=== PATIENT | male | born 1985 | race Hispanic/Latino ===

== ENCOUNTER 2019-07-22 20:33 | Inpatient (IN) | payer SELFPAY ==
--- NOTE | 2019-07-22 20:55 | Event Note ---
ED Screening Note Date of service: 07/22/19 Time: 20:52 ED Screening Note: This is a 33 y.o. M. that presents to the ER with pain to right buttocks from packed wound. He went to [facility] yesterday and had an I&D but reports increasing pain. He was discharged with pain medication and antibiotics. He is currently on 1013 at [facility] for ETOH. This initial assessment/diagnostic orders/clinical plan/treatment(s) is/are subject to change based on patients health status, clinical progression and re- assessment by fellow clinical providers in the ED. Further treatment and workup at subsequent clinical providers discretion. Patient/guardian urged not to elope from the ED as their condition may be serious if not clinically assessed and managed. Initial orders include:
--- NOTE | 2019-07-22 21:54 | Emergency Department Report ---
- General Chief complaint: Skin/Abscess/Foreign Body Stated complaint: ABCESS Time Seen by Provider: 07/22/19 20:52 Source: patient Mode of arrival: Ambulatory Limitations: No Limitations - History of Present Illness Initial comments: Patient is a 33-year-old male who presents the emergency room with complaints of an abscess to the right buttock that began 4 days ago. Patient states 2 days ago he went to the [facility] and had an I&D performed with packing placement. Patient states he was given prescription for Bactrim. He states was given 1 hydrocodone tab while in the ED but does not have any other pain medication. He states he has been taking ibuprofen without much relief. he denies any fever, chills, or drainage. Patient denies any past medical history or allergies to medications. Patient states that he is currently at [facility] for anxiety and depression. - Related Data Allergies Allergy/AdvReac Type Severity Reaction Status Date / Time No Known Allergies Allergy Verified 07/23/19 04:29 Abscess Boil HPI - HPI Chief Complaint: Skin/Abscess/Foreign Body Stated Complaint: ABCESS Time Seen by Provider: 07/22/19 20:52 Allergies/Adverse Reactions: Allergies Allergy/AdvReac Type Severity Reaction Status Date / Time No Known Allergies Allergy Verified 07/23/19 04:29 ED Review of Systems ROS: Stated complaint: ABCESS Other details as noted in HPI Comment: All other systems reviewed and negative ED Past Medical Hx - Past Medical History Previous Medical History?: No Hx Psychiatric Treatment: Yes (Depression) Additional medical history: Obesity, Alcoholism - Surgical History Past Surgical History?: No - Social History Smoking Status: Current Every Day Smoker Substance Use Type: Alcohol ED Physical Exam - General Limitations: No Limitations General appearance: alert, in no apparent distress - Head Head exam: Present: atraumatic, normocephalic - Eye Eye exam: Present: normal appearance - ENT ENT exam: Present: mucous membranes moist - Respiratory Respiratory exam: Present: normal lung sounds bilaterally. Absent: respiratory distress, wheezes, rales, rhonchi, stridor, chest wall tenderness, accessory muscle use, decreased breath sounds, prolonged expiratory - Cardiovascular Cardiovascular Exam: Present: regular rate, normal rhythm, normal heart sounds. Absent: systolic murmur, diastolic murmur, rubs, gallop - exam: Present: other (toppiece cutter: ramakrishna, RN, on exam erythema/inuduration present to the gluteal cleft, right buttock, perineum, and posterior scrotum, no testicle involvement, area of fluctuance present on the perineum, packing in place, no drainage/bleeding currently) - Neurological Exam Neurological exam: Present: alert, oriented X3 - Psychiatric Psychiatric exam: Present: normal affect, normal mood - Skin Skin exam: Present: warm, dry ED Course Vital Signs 07/22/19 07/22/19 07/22/19 20:39 22:50 23:20 Temperature 98.5 F Pulse Rate 108 H Respiratory 18 16 16 Rate Blood Pressure 125/90 Blood Pressure [Left] O2 Sat by Pulse 97 Oximetry 07/23/19 07/23/19 07/23/19 00:18 00:49 01:19 Temperature 98.4 F Pulse Rate 90 Respiratory 16 16 16 Rate Blood Pressure Blood Pressure 113/62 [Left] O2 Sat by Pulse 99 Oximetry 07/23/19 07/23/19 07/23/19 03:16 04:30 06:10 Temperature 98.4 F 98.4 F 98.9 F Pulse Rate 84 81 90 Respiratory 16 16 20 Rate Blood Pressure 126/75 Blood Pressure 116/62 118/69 [Left] O2 Sat by Pulse 98 98 98 Oximetry - Consultations Consultation #1: 07/23/19 01:[address] Kan,general surgery who recommended NPO, IV abx, and will take to the OR in the morning, advised for hospitalist to admit Consultation #2: 07/23/19 01:35 Dr. Block, hospitalist will accept and resume care of patient, will admit to the hospital ED Medical Decision Making - Lab Data Result diagrams: 07/22/19 22:26 07/22/19 22:26 Lab Results 07/22/19 07/22/19 07/22/19 Range/Units 22:26 22:26 22:26 WBC 12.7 H (4.5-11.0) K/mm3 RBC 5.03 (3.65-5.03) M/mm3 Hgb 15.2 (11.8-15.2) gm/dl Hct 44.7 (35.5-45.6) % MCV 89 (84-94) fl MCH 30 (28-32) pg MCHC 34 (32-34) % RDW 13.7 (13.2-15.2) % Plt Count 300 (140-440) K/mm3 Lymph % (Auto) 13.4 (13.4-35.0) % [place] % (Auto) 11.9 H (0.0-7.3) % Eos % (Auto) 1.8 (0.0-4.3) % Baso % (Auto) 0.5 (0.0-1.8) % Lymph # 1.7 (1.2-5.4) K/mm3 [place] # 1.5 H (0.0-0.8) K/mm3 Eos # 0.2 (0.0-0.4) K/mm3 Baso # 0.1 (0.0-0.1) K/mm3 Seg Neutrophils % 72.4 H (40.0-70.0) % Seg Neutrophils # 9.2 H (1.8-7.7) K/mm3 Sodium 136 L (137-145) mmol/L Potassium 4.5 (3.6-5.0) mmol/L Chloride 101.5 (98-107) mmol/L Carbon Dioxide 24 (22-30) mmol/L Anion Gap 15 mmol/L BUN 10 (9-20) mg/dL Creatinine 0.9 (0.8-1.5) mg/dL Estimated GFR > 60 ml/min BUN/Creatinine Ratio 11 % Glucose 100 (75-100) mg/dL Lactic Acid 0.80 (0.7-2.0) mmol/L Calcium 8.6 (8.4-10.2) mg/dL Total Bilirubin 0.30 (0.1-1.2) mg/dL AST 21 (5-40) units/L ALT 26 (7-56) units/L Alkaline Phosphatase 87 (35-129) units/L Total Creatine Kinase 180 H (55-170) units/L Total Protein 7.3 (6.3-8.2) g/dL Albumin 3.9 (3.9-5) g/dL Albumin/Globulin Ratio 1.1 % - Radiology Data Radiology results: report reviewed CT ABDOMEN AND PELVIS WITH CONTRAST INDICATION / CLINICAL INFORMATION: abscess, induration of gluteus/perineum/scrotum. TECHNIQUE: Axial CT images were obtained through the abdomen and pelvis after 100 mL Omnipaque [address] scans at this location are performed using CT dose reduction for ALARA by means of automated exposure control. COMPARISON: None available. FINDINGS: LOWER CHEST: Small calcified granulomas in the right middle lobe. No significant abnormality. LIVER: Mild diffuse hypodensity likely representing mild fatty infiltration. GALLBLADDER: No significant abnormality. BILE DUCTS: No significant abnormality. PANCREAS: No significant abnormality. SPLEEN: No significant abnormality. ADRENALS: No significant abnormality. RIGHT KIDNEY and URETER: No significant abnormality. LEFT KIDNEY and URETER: No significant abnormality. STOMACH and SMALL BOWEL: No significant abnormality. COLON: No significant abnormality. APPENDIX: No significant abnormality. PERITONEUM: No free fluid. No free air. No fluid collection. LYMPH NODES: No significant adenopathy. Shotty, mildly reactive bilateral inguinal lymph nodes. AORTA and ARTERIES: No significant abnormality. IVC and VEINS: No significant abnormality. URINARY BLADDER: No significant abnormality. REPRODUCTIVE ORGANS: No significant abnormality. ADDITIONAL FINDINGS: There is a perianal abscess beginning at the inferior margin of the perianal region and extending into the medial right buttock along the gluteal cleft. This abscess contains a few bubbles of gas and a small calcification. Abscess measures 3.2 x 2.0 x 6.0 cm. There is induration of the inferior right buttock extending into the posterior scrotum. There are a few bubbles of soft tissue gas in this indurated soft tissue. SKELETAL SYSTEM: No significant abnormality. IMPRESSION: 1. Perianal abscess extending into the medial right buttock along the gluteal cleft with adjacent soft tissue induration extending to the posterior scrotum. Signer Name: Genevieve Pedraza MD Signed: 07/23/2019 12:50 AM Workstation Name: [id number] Transcribed By: DT Dictated By: Law Pedraza MD Electronically Authenticated By: Law Pedraaz MD Signed Date/Time: 07/23/19 0050 - Medical Decision Making Patient is a 33-year-old male who presents the emergency room with complaints of an abscess to the right buttock that began 4 days ago. Patient states 2 days ago he went to the [facility] and had an I&D performed with packing placement. Patient states he was given prescription for Bactrim. He states was given 1 hydrocodone tab while in the ED but does not have any other pain medication. He states he has been taking ibuprofen without much relief. he denies any fever, chills, or drainage. Patient denies any past medical history or allergies to medications. Patient states that he is currently at [facility] for anxiety and depression. initial vitals with elevated HR which improved upon repeat. on exam: toppiece cutter: PATRICIA durbin, on exam erythema/inuduration present to the gluteal cleft, right buttock, perineum, and posterior scrotum, no testicle involvement, area of fluctuance present on the perineum, packing in place, no drainage/bleeding currently. packing removed and irrigated with saline and betadine. Dr. Hernandez, ER attending evaluated pt and recommended IV abx, labs, and CT abd/pelvis with IV contrast. mildly elevated WBC. CT abd pelvis with IV contrast: 1. Perianal abscess extending into the medial right buttock along the gluteal cleft with adjacent soft tissue induration extending to the posterior scrotum. spoke with Dr. Kan,general surgery who recommended NPO, IV abx, and will take to the OR in the morning, advised for hospitalist to admit. spoke with Dr. Block, hospitalist will accept and resume care of patient, will admit to the hospital. pt admitted to the hospital. - Differential Diagnosis abcess, cellulitis, Tiki's gangrene Critical care attestation.: If time is entered above; I have spent that time in minutes in the direct care of this critically ill patient, excluding procedure time. ED Disposition Clinical Impression: Perianal abscess Leukocytosis Qualifiers: Leukocytosis type: unspecified Qualified Code(s): D72.829 - Elevated white blood cell count, unspecified Disposition: OP ADMIT IP TO THIS HOSP Is pt being admited?: Yes Does the pt Need Aspirin: No Condition: Fair
[2019-07-22] MEDS ORDERED: ACETAMINOPHEN W/CODEINE 300-30 MG TAB PO ONE (22:11)
[2019-07-22] MEDS ORDERED: CLINDAMYCIN 600 MG/50 mL 600 MG/50 ML BAG IV ONE (22:22)
[2019-07-22] MEDS ORDERED: MORPHINE 4 MG/1 ML INJ IV ONE (22:22)
[2019-07-22] MEDS ORDERED: SODIUM CHLORIDE 0.9% 1000 ML 1,000 ML IV ONE (22:23)
[2019-07-22] MEDS ORDERED: ONDANSETRON 4 MG/2 ML INJ IV ONE (22:23)
--- NOTE | 2019-07-22 22:49 | Event Note ---
Date of service: 07/22/19 Face to Face: attending face to face 33-year-old gentleman, not known to this provider previously, reports outpatient incision and drainage to gluteal abscess a few days ago, now presenting with worsening gluteal pain, and perennial pain. He is afebrile but tachycardic, there is no perennial crepitus, and there is no testicular involvement. Suspect gluteal and perennial cellulitis. Do not suspect Tiki's gangrene at this time. We will treat with pain medicine, IV fluids, obtain screening laboratory studies, CT scan of the abdomen and pelvis, and reassess. This is discussed with the physician web press operator assistant. Vital Signs 07/22/19 20:39 Temperature 98.5 F Pulse Rate 108 H Respiratory 18 Rate Blood Pressure 125/90 O2 Sat by Pulse 97 Oximetry
[2019-07-22 22:54] LABS: Basophils # (Auto) 0.1 K/mm3 (0.0-0.1); Basophils % (Auto) 0.5 % (0.0-1.8); Eosinophils # (Auto) 0.2 K/mm3 (0.0-0.4); Eosinophils % (Auto) 1.8 % (0.0-4.3); Hematocrit 44.7 % (35.5-45.6); Hemoglobin 15.2 gm/dl (11.8-15.2); Lymphocytes # (Auto) 1.7 K/mm3 (1.2-5.4); Lymphocytes % (Auto) 13.4 % (13.4-35.0); Mean Corpuscular HGB Conc 34 % (32-34); Mean Corpuscular Volume 89 fl (84-94); Monocytes # (Auto) 1.5 K/mm3 (0.0-0.8); Monocytes % (Auto) 11.9 % (0.0-7.3); Platelet Count 300 K/mm3 (140-440); Red Blood Count 5.03 M/mm3 (3.65-5.03); Red Cell Distribution Width 13.7 % (13.2-15.2)
[2019-07-22 23:08] LABS: Alanine Aminotransferase 26 units/L (7-56); Albumin 3.9 g/dL (3.9-5); BUN/Creatinine Ratio 11; Blood Urea Nitrogen 10 mg/dL (9-20); Calcium 8.6 mg/dL (8.4-10.2); Hemolysis Index 1
[2019-07-23] MEDS ORDERED: HYDROmorphone 1 MG/1 ML INJ IV ONE (00:13)
--- NOTE | 2019-07-23 00:55 | Cat Scan Report ---
CT ABDOMEN AND PELVIS WITH CONTRAST INDICATION / CLINICAL INFORMATION: abscess, induration of gluteus/perineum/scrotum. TECHNIQUE: Axial CT images were obtained through the abdomen and pelvis after 100 mL Omnipaque [address] scans at this location are performed using CT dose reduction for ALARA by means of automated exposure control. COMPARISON: None available. FINDINGS: LOWER CHEST: Small calcified granulomas in the right middle lobe. No significant abnormality. LIVER: Mild diffuse hypodensity likely representing mild fatty infiltration. GALLBLADDER: No significant abnormality. BILE DUCTS: No significant abnormality. PANCREAS: No significant abnormality. SPLEEN: No significant abnormality. ADRENALS: No significant abnormality. RIGHT KIDNEY and URETER: No significant abnormality. LEFT KIDNEY and URETER: No significant abnormality. STOMACH and SMALL BOWEL: No significant abnormality. COLON: No significant abnormality. APPENDIX: No significant abnormality. PERITONEUM: No free fluid. No free air. No fluid collection. LYMPH NODES: No significant adenopathy. Shotty, mildly reactive bilateral inguinal lymph nodes. AORTA and ARTERIES: No significant abnormality. IVC and VEINS: No significant abnormality. URINARY BLADDER: No significant abnormality. REPRODUCTIVE ORGANS: No significant abnormality. ADDITIONAL FINDINGS: There is a perianal abscess beginning at the inferior margin of the perianal reg ion and extending into the medial right buttock along the gluteal cleft. This abscess contains a few bubbles of gas and a small calcification. Abscess measures 3.2 x 2.0 x 6.0 cm. There is induration of the inferior right buttock extending into the posterior scrotum. There are a few bubbles of soft tis debra gas in this indurated soft tissue. SKELETAL SYSTEM: No significant abnormality. IMPRESSION: 1. Perianal abscess extending into the medial right buttock along the gluteal cleft with adjacent sof t tissue induration extending to the posterior scrotum. Signer Name: Genevieve Pedraza MD Signed: 07/23/2019 12:50 AM Workstation Name: [id number]
[2019-07-23] MEDS ORDERED: ACETAMINOPHEN 325 MG TAB PO PRN (02:38)
[2019-07-23] MEDS ORDERED: ONDANSETRON 4 MG/2 ML INJ IV PRN (02:38)
[2019-07-23] MEDS ORDERED: LORazepam 2 MG/ML VIAL IV PRN (02:50)
--- NOTE | 2019-07-23 02:57 | History and Physical Report ---
<PHILIP MARSHALL - Last Filed: 07/23/19 03:23> History of Present Illness Date of examination: 07/23/19 Date of admission: 07/23/2019 Chief complaint: Abscess to the right buttock. History of present illness: 33-year-old male who is on [address] [facility] with history of anxiety, depression, tobacco abuse, and EtOH abuse who presents to [facility] ED with complaints of abscess to the right buttock. Patient states that he felt a small bump around his rectum approximately one week ago. The bump continued to grow, and became painful. He went to [facility] where they performed an I& D, gave him Bactrim, and packed the site. He was also given hydrocodone in the ED but denies received a prescription for any pain medicine. His pain continued and began to worsened, so he decided to come to ED for further evaluation. Pt states that he has had an a rectal abscess about 5-6 years ado. The abscess resolved on its own and did not require any medical.surgical intervention. Past History Past Medical History: other (anxiety, depression, obesity) Past Surgical History: Other (rectal abscess I&D 06/2019) Social history: smoking, alcohol abuse, other (1013 at [facility]) Family history: no significant family history Medications and Allergies Active Meds: Active Medications Acetaminophen (Tylenol) 650 mg PO Q4H PRN PRN Reason: Pain MILD(1-3)/Fever >100.5/SPENCER Hydromorphone HCl (Dilaudid) 0.5 mg IV Q3H PRN PRN Reason: Pain , Severe (7-10) Sodium Chloride (Nacl 0.9% 1000 Ml) 1,000 mls @ 100 mls/hr IV DIRECT GIR[facility] Metronidazole (Flagyl 500 Mg/100 Ml) 500 mg in 100 mls @ 100 mls/hr IV Q8HR GIRISH; Protocol Levofloxacin/Dextrose (Levaquin 500mg/100ml) 500 mg in 100 mls @ 100 mls/hr IV Q48H GIR[facility]; Protocol Lorazepam (Ativan) 2 mg IV Q1H PRN PRN Reason: CIWA-Ar 8-15 Lorazepam (Ativan) 4 mg IV Q1H PRN PRN Reason: CIWA-Ar 16-25 Morphine Sulfate (Morphine) 2 mg IV Q4H PRN PRN Reason: Pain, Moderate (4-6) Nicotine (Habitrol) 14 mg TD QDAY GIRISH Ondansetron HCl (Zofran) 4 mg IV Q6H PRN PRN Reason: Nausea And Vomiting Sodium Chloride (Sodium Chloride Flush Syringe 10 Ml) 10 ml IV BID GIRISH Sodium Chloride (Sodium Chloride Flush Syringe 10 Ml) 10 ml IV PRN PRN PRN Reason: LINE FLUSH Review of Systems All systems: negative Genitourinary Male: other Rectal: pain, other (rectal abscess) Exam - Physical Exam Narrative exam: Physical exam General appearance: Present: No acute distress, alert and oriented 3, well developed, adult male - EENT Eyes: Present: PERRL, EOM intact, ENT: hearing intact, normal dentition - Neck Neck: Present: supple, normal ROM - Respiratory Respiratory effort: Non-labored Respiratory: CTA - Cardiovascular Heart rate: 84 (bpm) Rhythm: SR Heart Sounds: Present: S1, S2 - Extremities Extremities: no ischemia, pulses intact, - Peripheral Assessment Peripheral Pulses: within normal limits - Abdominal General gastrointestinal: obese, non-tender, normal bowel sounds - Integumentary Integumentary: Present: warm, dry, - Musculoskeletal Musculoskeletal: Able to move all extremities, normal gait -Neurological Neurological: CN II-XII grossly intact - Psychiatric Psychiatric: cooperative - Constitutional Vitals: Temp Pulse Resp BP Pulse Ox 98.4 F 90 16 113/62 99 07/23/19 00:18 07/23/19 00:18 07/23/19 00:49 07/23/19 00:18 07/23/19 00:18 Results - Labs CBC & Chem 7: 07/22/19 22:26 07/22/19 22:26 Labs: Laboratory Last Values WBC 12.7 K/mm3 (4.5-11.0) H 07/22/19 22:26 RBC 5.03 M/mm3 (3.65-5.03) 07/22/19 22:26 Hgb 15.2 gm/dl (11.8-15.2) 07/22/19 22:26 Hct 44.7 % (35.5-45.6) 07/22/19 22:26 MCV 89 fl (84-94) 07/22/19 22:26 MCH 30 pg (28-32) 07/22/19 22:26 MCHC 34 % (32-34) 07/22/19 22:26 RDW 13.7 % (13.2-15.2) 07/22/19 22:26 Plt Count 300 K/mm3 (140-440) 07/22/19 22:26 Lymph % (Auto) 13.4 % (13.4-35.0) 07/22/19 22:26 [place] % (Auto) 11.9 % (0.0-7.3) H 07/22/19 22:26 Eos % (Auto) 1.8 % (0.0-4.3) 07/22/19 22:26 Baso % (Auto) 0.5 % (0.0-1.8) 07/22/19 22: Lymph # 1.7 K/mm3 (1.2-5.4) 07/22/19 22:26 [place] # 1.5 K/mm3 (0.0-0.8) H 07/22/19 22:26 Eos # 0.2 K/mm3 (0.0-0.4) 07/22/19 22:26 Baso # 0.1 K/mm3 (0.0-0.1) 07/22/19 22:26 Seg Neutrophils % 72.4 % (40.0-70.0) H 07/22/19 22:26 Seg Neutrophils # 9.2 K/mm3 (1.8-7.7) H 07/22/19 22:26 Sodium 136 mmol/L (137-145) L 07/22/19 22:26 Potassium 4.5 mmol/L (3.6-5.0) 07/22/19 22:26 Chloride 101.5 mmol/L (98-107) 07/22/19 22:26 Carbon Dioxide 24 mmol/L (22-30) 07/22/19 22:26 15 mmol/L 07/22/19 22:26 BUN 10 mg/dL (9-20) 07/22/19 22:26 0.9 mg/dL (0.8-1.5) 07/22/19 22:26 Estimated GFR > 60 ml/min 07/22/19 22:26 11 % 07/22/19 22:26 Glucose 100 mg/dL (75-100) 07/22/19 22:26 Lactic Acid 0.80 mmol/L (0.7-2.0) 07/22/19 22:26 Calcium 8.6 mg/dL (8.4-10.2) 07/22/19 22:26 0.30 mg/dL (0.1-1.2) 07/22/19 22:26 AST 21 units/L (5-40) 07/22/19 22:26 ALT 26 units/L (7-56) 07/22/19 22:26 87 units/L (35-129) 07/22/19 22:26 180 units/L (55-170) H 07/22/19 22:26 7.3 g/dL (6.3-8.2) 07/22/19 22: 3.9 g/dL (3.9-5) 07/22/19 22:26 1.1 % 07/22/19 22:26 - Imaging and Cardiology Imaging and Cardiology: CT Abd/ Pelvis: FINDINGS: LOWER CHEST: Small calcified granulomas in the right middle lobe. No significant abnormality. LIVER: Mild diffuse hypodensity likely representing mild fatty infiltration. GALLBLADDER: No significant abnormality. BILE DUCTS: No significant abnormality. PANCREAS: No significant abnormality. SPLEEN: No significant abnormality. ADRENALS: No significant abnormality. RIGHT KIDNEY and URETER: No significant abnormality. LEFT KIDNEY and URETER: No significant abnormality. STOMACH and SMALL BOWEL: No significant abnormality. COLON: No significant abnormality. APPENDIX: No significant abnormality. PERITONEUM: No free fluid. No free air. No fluid collection. LYMPH NODES: No significant adenopathy. Shotty, mildly reactive bilateral inguinal lymph nodes. AORTA and ARTERIES: No significant abnormality. IVC and VEINS: No significant abnormality. URINARY BLADDER: No significant abnormality. REPRODUCTIVE ORGANS: No significant abnormality. ADDITIONAL FINDINGS: There is a perianal abscess beginning at the inferior margin of the perianal region and extending into the medial right buttock along the gluteal cleft. This abscess contains a few bubbles of gas and a small calcification. Abscess measures 3.2 x 2.0 x 6.0 cm. There is induration of the inferior right buttock extending into the posterior scrotum. There are a few bubbles of soft tissue gas in this indurated soft tissue. Assessment and Plan Assessment and plan: 33-year-old male who is on 1013 at [facility] with history of anxiety, depression, tobacco abuse, and EtOH abuse who presents to [facility] ED with complaints of abscess to the right buttock. Will admit to Med/Surg for further evaluation and treatment. Perianal abscess -I&D of abscess done at [facility] 4 days ago -Today's CT Abd/Pelvis revealed: perianal abscess measuring 3.2 x 2.0 x 6.0 cm extending to right medial buttock along the gluteal cleft with induration of the inferior right buttock extending into the posterior scrotum. This abscess contains a few bubbles of gas and a small calcification. -Start on IV Levaquin and Flagyl -Gen Surgery (Dr. Kan) consulted with plans to take pt to OR in am -NPO -on IVF -Continue supportive care Leukocytosis -WBC 12.7 -Afebrile -Likely secondary to perianal abscess -On IV abx -Continue to monitor CBC Tobacco abuse -Current every day smoker -Counseled for cessation -Nicotine patch when necessary EtOH Abuse -Last drink 4 days ago -Initiate CIWA protocol -Start Thiamine and Folic Acid -On D5 NS -Counseled for cessation abuse DVT PPX -on SCD's Advance Directives: No VTE prophylaxis?: Mechanical Plan of care discussed with patient/family: Yes <TIFF VALIENTE - Last Filed: 07/23/19 22:25> History of Present Illness Date of admission: 07/23/19 02:38 Medications and Allergies Active Meds: Active Medications Acetaminophen (Tylenol) 650 mg PO Q4H PRN PRN Reason: Pain MILD(1-3)/Fever >100.5/SPENCER Hydromorphone HCl (Dilaudid) 0.5 mg IV Q3H PRN PRN Reason: Pain , Severe (7-10) Last Admin: 07/23/19 18:55 Dose: 0.5 mg Documented by: Metronidazole (Flagyl 500 Mg/100 Ml) 500 mg in 100 mls @ 100 mls/hr IV Q8HR GIRISH; Protocol Last Admin: 07/23/19 22:03 Dose: 100 mls/hr Documented by: Folic Acid 1 mg/ Sodium (Chloride) 50.2 mls @ 200.8 mls/hr IV QDAY GIRISH Last Admin: 07/23/19 14:59 Dose: 200.8 mls/hr Documented by: Thiamine HCl 100 mg/ Sodium (Chloride) 51 mls @ 100 mls/hr IV QDAY [facility] Last Admin: 07/23/19 12:32 Dose: 100 mls/hr Documented by: Dextrose/Sodium Chloride (D5ns) 1,000 mls @ 75 mls/hr IV DIRECT [facility] Last Admin: 07/23/19 12:25 Dose: 75 mls/hr Documented by: Levofloxacin/Dextrose (Levaquin 500mg/100ml) 500 mg in 100 mls @ 100 mls/hr IV Q24H [facility]; Protocol Last Admin: 07/23/19 20:46 Dose: Not Given Documented by: Lorazepam (Ativan) 2 mg IV Q1H PRN PRN Reason: CIWA-Ar 8-15 Lorazepam (Ativan) 4 mg IV Q1H PRN PRN Reason: CIWA-Ar 16-25 Morphine Sulfate (Morphine) 2 mg IV Q4H PRN PRN Reason: Pain, Moderate (4-6) Last Admin: 07/23/19 22:03 Dose: 2 mg Documented by: Nicotine (Habitrol) 14 mg TD QDAY [facility] Last Admin: 07/23/19 12:37 Dose: Not Given Documented by: Ondansetron HCl (Zofran) 4 mg IV Q6H PRN PRN Reason: Nausea And Vomiting Sodium Chloride (Sodium Chloride Flush Syringe 10 Ml) 10 ml IV BID [facility] Last Admin: 07/23/19 22:04 Dose: 10 ml Documented by: Sodium Chloride (Sodium Chloride Flush Syringe 10 Ml) 10 ml IV PRN PRN PRN Reason: LINE FLUSH Exam - Constitutional Vitals: Temp Pulse Resp BP Pulse Ox 98.2 F 68 18 116/48 95 07/23/19 22:15 07/23/19 22:15 07/23/19 22:15 07/23/19 22:15 07/23/19 22:15 Results - Labs CBC & Chem 7: 07/22/19 22:26 07/22/19 22:26 Labs: Laboratory Last Values WBC 12.7 K/mm3 (4.5-11.0) H 07/22/19 22:26 RBC 5.03 M/mm3 (3.65-5.03) 07/22/19 22:26 Hgb 15.2 gm/dl (11.8-15.2) 07/22/19 22:26 Hct 44.7 % (35.5-45.6) 07/22/19 22:26 MCV 89 fl (84-94) 07/22/19 22:26 MCH 30 pg (28-32) 07/22/19 22:26 MCHC 34 % (32-34) 07/22/19 22:26 RDW 13.7 % (13.2-15.2) 07/22/19 22:26 Plt Count 300 K/mm3 (140-440) 07/22/19 22:26 Lymph % (Auto) 13.4 % (13.4-35.0) 07/22/19 22:26 [place] % (Auto) 11.9 % (0.0-7.3) H 07/22/19 22:26 Eos % (Auto) 1.8 % (0.0-4.3) 07/22/19 22:26 Baso % (Auto) 0.5 % (0.0-1.8) 07/22/19 22:26 Lymph # 1.7 K/mm3 (1.2-5.4) 07/22/19 22:26 Johnston # 1.5 K/mm3 (0.0-0.8) H 07/22/19 22:26 Eos # 0.2 K/mm3 (0.0-0.4) 07/22/19 22:26 Baso # 0.1 K/mm3 (0.0-0.1) 07/22/19 22:26 Seg Neutrophils % 72.4 % (40.0-70.0) H 07/22/19 22:26 Seg Neutrophils # 9.2 K/mm3 (1.8-7.7) H 07/22/19 22:26 Sodium 136 mmol/L (137-145) L 07/22/19 22:26 Potassium 4.5 mmol/L (3.6-5.0) 07/22/19 22:26 Chloride 101.5 mmol/L (98-107) 07/22/19 22:26 Carbon Dioxide 24 mmol/L (22-30) 07/22/19 22:26 15 mmol/L 07/22/19 22:26 BUN 10 mg/dL (9-20) 07/22/19 22:26 0.9 mg/dL (0.8-1.5) 07/22/19 22:26 Estimated GFR > 60 ml/min 07/22/19 22:26 11 % 07/22/19 22:26 Glucose 100 mg/dL (75-100) 07/22/19 22:26 Lactic Acid 0.80 mmol/L (0.7-2.0) 07/22/19 22:26 Calcium 8.6 mg/dL (8.4-10.2) 07/22/19 22:26 0.30 mg/dL (0.1-1.2) 07/22/19 22:26 AST 21 units/L (5-40) 07/22/19 22:26 ALT 26 units/L (7-56) 07/22/19 22:26 87 units/L (35-129) 07/22/19 22:26 180 units/L (55-170) H 07/22/19 22:26 7.3 g/dL (6.3-8.2) 07/22/19 22:26 3.9 g/dL (3.9-5) 07/22/19 22:26 1.1 % 07/22/19 22:26 Assessment and Plan Assessment and plan: I personally discussed the pt with the COLLAR TACKER-C, I agree with the above assessment and plan
[2019-07-23] MEDS ORDERED: SODIUM CHLORIDE 0.9% 1000 ML 1,000 ML IV SCH (03:00)
[2019-07-23] MEDS: HYDROmorphone 1 MG/1 ML INJ IV PRN ×4 (06:09→18:55)
[2019-07-23] MEDS ORDERED: LIDOCAINE (1%) 10 MG/1 ML VIAL 20 ML MDV ONE (08:43)
[2019-07-23] MEDS ORDERED: BUPIVACAINE/PF (0.5%) 5 MG/1 ML 30 ML VIAL INFILTRATI ONE (08:43)
[2019-07-23] MEDS ORDERED: BUPIVACAINE-EPINEPHRINE/PF 0.5%-1:200,000 (30 ML) VIAL INFILTRATI ONE ×2 (08:44→10:25)
[2019-07-23] MEDS ORDERED: dexAMETHasone 20 MG/5 ML VIAL ONE (09:02)
[2019-07-23] MEDS ORDERED: SUCCINYLCHOLINE CHLORIDE 200 MG/10 ML INJ MDV ONE (09:02)
[2019-07-23] MEDS ORDERED: NEOSTIGMINE 10MG/10 ML INJ MDV ONE (09:02)
[2019-07-23] MEDS ORDERED: GLYCOPYRROLATE 0.4 MG/2 ML INJ ONE (09:02)
[2019-07-23] MEDS ORDERED: LIDOCAINE MPF (2%) 20 MG/1 ML VIAL 5 ML ONE (09:02)
[2019-07-23] MEDS ORDERED: fentaNYL 100 MCG/2 ML INJ ONE ×2 (09:02)
[2019-07-23] MEDS ORDERED: ONDANSETRON 4 MG/2 ML INJ ONE (09:02)
[2019-07-23] MEDS ORDERED: PHENYLEPHRINE/NS 1,000 MCG/10 ML SYRINGE (OR USE) IV ONE (09:02)
[2019-07-23] MEDS ORDERED: ROCURONIUM 50 MG/5 ML INJ IV ONE (09:02)
[2019-07-23] MEDS ORDERED: PROPOFOL 200 MG/20 ML VIAL IV ONE (09:03)
--- NOTE | 2019-07-23 09:03 | Consultation ---
History of Present Illness Consult date: 07/23/19 Reason for consult: other (kralos-anal abscess) - History of present illness History of present illness: 33 year old male presented to ED with right buttock pain. He had an abscess drained in the affected area a few days ago at an OSH. The pain never resolved and after getting worse he came in. imaging shows a [id number] abscess. Over night it started to spontaneously drain. He has had similar symptoms before years ago. Past History Past Medical History: other (anxiety, depression, obesity) Past Surgical History: Other (rectal abscess I&D 06/2019) Social history: smoking, alcohol abuse, other (1013 at [place]) Family history: no significant family history Medications and Allergies Allergies Allergy/AdvReac Type Severity Reaction Status Date / Time No Known Allergies Allergy Verified 07/23/19 04:29 Active Meds: Active Medications Acetaminophen (Tylenol) 650 mg PO Q4H PRN PRN Reason: Pain MILD(1-3)/Fever >100.5/SPENCER Hydromorphone HCl (Dilaudid) 0.5 mg IV Q3H PRN PRN Reason: Pain , Severe (7-10) Last Admin: 07/23/19 06:09 Dose: 0.5 mg Documented by: Metronidazole (Flagyl 500 Mg/100 Ml) 500 mg in 100 mls @ 100 mls/hr IV Q8HR GIRISH; Protocol Folic Acid 1 mg/ Sodium (Chloride) 50.2 mls @ 200.8 mls/hr IV QDAY [facility] Thiamine HCl 100 mg/ Sodium (Chloride) 51 mls @ 100 mls/hr IV QDAY [facility] Dextrose/Sodium Chloride (D5ns) 1,000 mls @ 75 mls/hr IV DIRECT GIRISH Levofloxacin/Dextrose (Levaquin 500mg/100ml) 500 mg in 100 mls @ 100 mls/hr IV Q24H [facility]; Protocol Lorazepam (Ativan) 2 mg IV Q1H PRN PRN Reason: CIWA-Ar 8-15 Lorazepam (Ativan) 4 mg IV Q1H PRN PRN Reason: CIWA-Ar 16-25 Morphine Sulfate (Morphine) 2 mg IV Q4H PRN PRN Reason: Pain, Moderate (4-6) Nicotine (Habitrol) 14 mg TD QDAY [facility] Ondansetron HCl (Zofran) 4 mg IV Q6H PRN PRN Reason: Nausea And Vomiting Sodium Chloride (Sodium Chloride Flush Syringe 10 Ml) 10 ml IV BID [facility] Sodium Chloride (Sodium Chloride Flush Syringe 10 Ml) 10 ml IV PRN PRN PRN Reason: LINE FLUSH Review of Systems - Constitutional no fever, no chills - Respiratory no shortness of breath - Gastrointestinal no abdominal pain (pain and drainage of right buttock) Exam Vital Signs Temp Pulse Resp BP Pulse Ox 98.5 F 108 H 18 125/90 97 07/22/19 20:39 07/22/19 20:39 07/22/19 20:39 07/22/19 20:39 07/22/19 20:39 - General physical appearance Positive: well developed, well nourished, no distress - Respiratory Positive: normal expansion, normal respiratory effort - Abdomen Abdomen: Present: other (benign) - Rectum Rectum: normal spincter tone (draining wound right karlos-anal area) Results - Labs 07/22/19 22:26 07/22/19 22:26 Abnormal lab results 07/22/19 07/22/19 Range/Units 22:26 22:26 WBC 12.7 H (4.5-11.0) K/mm3 [place] % (Auto) 11.9 H (0.0-7.3) % [place] # 1.5 H (0.0-0.8) K/mm3 Seg Neutrophils % 72.4 H (40.0-70.0) % Seg Neutrophils # 9.2 H (1.8-7.7) K/mm3 Sodium 136 L (137-145) mmol/L Total Creatine Kinase 180 H (55-170) units/L Diabetes panel 07/22/19 Range/Units 22:26 Sodium 136 L (137-145) mmol/L Potassium 4.5 (3.6-5.0) mmol/L Chloride 101.5 (98-107) mmol/L Carbon Dioxide 24 (22-30) mmol/L BUN 10 (9-20) mg/dL Creatinine 0.9 (0.8-1.5) mg/dL Glucose 100 (75-100) mg/dL Calcium 8.6 (8.4-10.2) mg/dL AST 21 (5-40) units/L ALT 26 (7-56) units/L Alkaline Phosphatase 87 (35-129) units/L Total Protein 7.3 (6.3-8.2) g/dL Albumin 3.9 (3.9-5) g/dL Calcium panel 07/22/19 Range/Units 22:26 Calcium 8.6 (8.4-10.2) mg/dL Albumin 3.9 (3.9-5) g/dL Pituitary panel 07/22/19 Range/Units 22:26 Sodium 136 L (137-145) mmol/L Potassium 4.5 (3.6-5.0) mmol/L Chloride 101.5 (98-107) mmol/L Carbon Dioxide 24 (22-30) mmol/L BUN 10 (9-20) mg/dL Creatinine 0.9 (0.8-1.5) mg/dL Glucose 100 (75-100) mg/dL Calcium 8.6 (8.4-10.2) mg/dL Adrenal panel 07/22/19 Range/Units 22:26 Sodium 136 L (137-145) mmol/L Potassium 4.5 (3.6-5.0) mmol/L Chloride 101.5 (98-107) mmol/L Carbon Dioxide 24 (22-30) mmol/L BUN 10 (9-20) mg/dL Creatinine 0.9 (0.8-1.5) mg/dL Glucose 100 (75-100) mg/dL Calcium 8.6 (8.4-10.2) mg/dL Total Bilirubin 0.30 (0.1-1.2) mg/dL AST 21 (5-40) units/L ALT 26 (7-56) units/L Alkaline Phosphatase 87 (35-129) units/L Total Protein 7.3 (6.3-8.2) g/dL Albumin 3.9 (3.9-5) g/dL Assessment and Plan karlos-anal abscess. inadequately drained with spontaneous active drainage. afebrile stable will take to OR for EUA and extensive drainage. continue antibiotics, will have would care team change dressing after procedure.
[2019-07-23] MEDS ORDERED: HYDROmorphone 1 MG/1 ML INJ IV PRN (09:11)
--- NOTE | 2019-07-23 09:11 | Anesthesia Consultation ---
Anesthesia Consult and Med Hx Date of service: 07/23/19 - Airway Anesthetic Teeth Evaluation: Good ROM Head & Neck: Adequate Mental/Hyoid Distance: Adequate Mallampati Class: Class III Intubation Access Assessment: Possibly Difficult - Pulmonary Exam CTA: Yes - Cardiac Exam Cardiac Exam: RRR - Pre-Operative Health Status ASA Pre-Surgery Classification: ASA3 Proposed Anesthetic Plan: General - Pulmonary Hx Smoking: Yes (1/2PPD) Hx Respiratory Symptoms: No - Cardiovascular System Hx Hypertension: No Hx Heart Attack/AMI: No - Central Nervous System CVA: No Hx Psychiatric Problems: Yes (anxiety/depression; current 1013 patient at [facility]) - Gastrointestinal Hx Gastroesophageal Reflux Disease: No - Endocrine Hx Renal Disease: No Hx Liver Disease: No Hx Insulin Dependent Diabetes: No Hx Non-Insulin Dependent Diabetes: No Hx Thyroid Disease: No - Hematic Hx Anemia: No - Other Systems Hx Alcohol Use: Yes (hx EtOH abuse; last drink 1 wk ago - no withdrawal symptoms) Hx Obesity: Yes (BMI 41) - Additional Comments Anesthesia Medical History Comments: No hx anesthetic complications.
--- NOTE | 2019-07-23 09:11 | Anesthesia Day of Surgery ---
Anesthesia Day of Surgery - Day of Surgery Patient Examined: Yes Patient H&P Reviewed: Yes Patient is NPO: Yes
[2019-07-23] MEDS ORDERED: SODIUM CHLORIDE 0.9% IRR 1,000 ML BOTTLE IR ONE (09:58)
[2019-07-23] MEDS ORDERED: LIDOCAINE (1%) 10 MG/1 ML VIAL 20 ML MDV INFILTRATI ONE (10:25)
--- NOTE | 2019-07-23 10:27 | Event Note ---
Date: 07/23/19 Patient was admitted earlier this morning for the management of perianal abscess, general surgery and wound care consulted, continue antibiotics.
--- NOTE | 2019-07-23 10:48 | Operative Report ---
Operative Report Operative Report: DATE: 07/23/2019 SURGEON: CESAR RODAS MD EMBEDDED FIRMWARE DEVELOPER: N/A PRE-OP DX: TENA-ANAL ABSCESS POST-PX: RIGHT GLUTEAL/ TENA-ANAL ABSCESS PROCDURE: OPEN DRAINAGE OF RIGHT GLUTEAL/TENA-ANAL ABSCESS ANESTHESIA: GETA SPECIMEN: WOUND CULTURE INDICATION: 33 YEAR OLD MALE ADMITTED OVER NIGHT FROM ED WITH RIGHT BUTTOCK WOUND THAT WAS INCOMPLETELY DRAINED AT AN OSH A FEW DAYS AGO. IT CONTINUED TO BE PAINFUL. A CT SCAN SHOWED [id number] GLUTEAL ABSCESS. HE SIGNED INFORMED CONSENT FOR EUA AND OPEN DRAINAGE. DETAILS OF PROCEDURE: PT WAS BROUGHT INTO OR SUITE. IN SUPINE POSITION ON THE STRETCHER HE WAS SUCCESSFULLY INTUBATED AND GENERAL ANESTHESIA WAS INDUCED. BILATERAL SCD WERE PLACED ON HIS LEGS PRIOR TO INDUCTION. HE WAS THEN CAREFULLY ROLLED INTO PRONE POSITION ON THE OR TABLE. HE WAS SECURED WITH ALL PRESSURE POINTS PADDED. THE OPERATIVE FIELD WAS PREPPED AND DRAPED IN STERILE FASHION. THERE WAS AN OPENLY DRAINING WOUND ON THE INFERIOR ASPECT OF THE RIGHT GLUTEAL CLEFT. THIS WOUND MEASURED ABOUT 2X2 CM. CULTURE SWAPS WERE TAKEN AND SENT TO PATHOLOGY. THE ABSCESS CAVITY WAS DIGITALLY EXPLORED AND FOUND TO TRAVEL SUPERIORLY LATERAL TO THE ANUS AND TERMINATING AT THE LEVEL OF THE ANUS ABOUT HALF WAY UP THE GLUTEAL CLEFT. ALL POCKETS WERE MANUALLY BROKEN UP. THE CAVITY WAS IRRIGATED WITH NORMAL SALINE. NECROTIC SKIN AT THE WOUND SITE WAS EXCISED. HEMOSTASIS WAS ACHIEVED AND THE CAVITY WAS PACKED WITH IODOFORM PACKING GAUZE. IT WAS THEN COVERED WITH ABD PAD. PT WAS THEN AWOKEN, RETURNED TO SUPINE PO SITION AND EXTUBATED. HE WAS TAKEN TO RECOVERY IN STABLE CONDITION. ALL COUNTS WERE CORRECT. WILL CONSULT WOUND CARE TEAM TO CHANGE DRESSINGS.
--- NOTE | 2019-07-23 11:55 | Post Anesthesia Evaluation ---
- Post Anesthesia Evaluation Patient Participated: Yes Airway Patent: Yes Stable Respiratory Function: Yes Nausea/Vomiting: No Temp > 96.8F: Yes Pain Manageable: Yes Adequeate Hydration: Yes Anesthesia Complications: No
[2019-07-23] MEDS: D5W/0.9% NACL 1,000 ML IV SCH (12:25)
[2019-07-23] MEDS: THIAMINE 100 MG in SODIUM CHLORIDE 0.9% 50 ML IV SCH (12:32)
[2019-07-23] MEDS: NICOTINE 14 MG/24 HR PATCH TD SCH (12:37)
[2019-07-23] MEDS: metroNIDAZOLE/NS 500 MG/100 ML 500 MG/100 ML BAG IV SCH ×4 (14:00→22:03)
[2019-07-23] MEDS: FOLIC ACID 1 MG in SODIUM CHLORIDE 0.9% 50 ML IV SCH (14:59)
[2019-07-23] MEDS: MORPHINE 2 MG/1 ML INJ IV PRN (22:03)
[2019-07-24] MEDS: LORazepam 2 MG/ML VIAL IV PRN ×6 (00:22→23:32)
[2019-07-24] MEDS: HYDROmorphone 1 MG/1 ML INJ IV PRN ×4 (02:11→20:27)
[2019-07-24] MEDS: MORPHINE 2 MG/1 ML INJ IV PRN ×2 (06:00→11:43)
[2019-07-24 06:46] LABS: BUN/Creatinine Ratio 12; Blood Urea Nitrogen 7 mg/dL (9-20); Calcium 8.8 mg/dL (8.4-10.2); Hemolysis Index 0
[2019-07-24 06:46] LABS: Basophils % (Auto) 0.2 % (0.0-1.8); Eosinophils % (Auto) 0.2 % (0.0-4.3); Hematocrit 42.6 % (35.5-45.6); Hemoglobin 14.6 gm/dl (11.8-15.2); Lymphocytes # (Auto) 1.8 K/mm3 (1.2-5.4); Mean Corpuscular HGB Conc 34 % (32-34); Mean Corpuscular Volume 89 fl (84-94); Monocytes # (Auto) 1.1 K/mm3 (0.0-0.8); Monocytes % (Auto) 9.3 % (0.0-7.3); Platelet Count 350 K/mm3 (140-440); Red Blood Count 4.79 M/mm3 (3.65-5.03); Red Cell Distribution Width 13.5 % (13.2-15.2)
[2019-07-24] MEDS: metroNIDAZOLE/NS 500 MG/100 ML 500 MG/100 ML BAG IV SCH ×3 (06:58→22:02)
[2019-07-24] MEDS: NICOTINE 14 MG/24 HR PATCH TD SCH (11:09)
--- NOTE | 2019-07-24 11:09 | Progress Note ---
Assessment and Plan Assessment and plan: 33-year-old male who is on 1013 at [facility] with history of anxiety, depression, tobacco abuse, and EtOH abuse who presents to [facility] ED with complaints of abscess to the right buttock. Perianal abscess -I&D of abscess done at [facility] 4 days ago, sp I and D by Dr Kan on 07/23, surgical cx growing gram neg rods -Continue antibiotics Leukocytosis Trending down Tobacco abuse/dependence Smoking cessation counseling performed for 10 minutes, nicotine patches when necessary Etoh dependence and withdrawal - wa protocol, thiamine and folate -preventative health counseling performed for 17 minutes Had not had a drink for close to a week DVT PPX -on SCD's History Interval history: Perianal pain is well controlled, denies suicidal ideation Review of systems Constitutional: No fevers, no malaise, no joint pains CVS: No chest pain, no orthopnea, no pedal edema GI: No abdominal pain, no diarrhea, no vomiting, no constipation Respiratory: No shortness of breath, no wheezing, no coughing Hospitalist Physical - Physical exam Narrative exam: General.: Appears well, no distress, nontoxic HEENT: Moist mucous membranes, extraocular muscles intact, no lymphadenopathy Neck: supple Cardiac: S1-S2 heard Lungs: clear to auscultation bilaterally Abdomen: soft , nontender, nondistended, bowel sounds positive Extremities: no edema clubbing or cyanosis Skin: no rash or lesions Perianal dressing was not removed Neurologic: no gross focal deficits Psych: calm, and cooperative - Constitutional Vitals: Temp Pulse Resp BP Pulse Ox 97.8 F 85 20 115/58 93 07/24/19 05:47 07/24/19 05:47 07/24/19 05:47 07/24/19 05:47 07/24/19 05:47 Results - Labs CBC & Chem 7: 07/24/19 Unknown 07/24/19 04:00 Labs: Laboratory Last Values WBC 11.4 K/mm3 (4.5-11.0) H 07/24/19 Unknown RBC 4.79 M/mm3 (3.65-5.03) 07/24/19 Unknown Hgb 14.6 gm/dl (11.8-15.2) 07/24/19 Unknown Hct 42.6 % (35.5-45.6) 07/24/19 Unknown MCV 89 fl (84-94) 07/24/19 Unknown MCH 31 pg (28-32) 07/24/19 Unknown MCHC 34 % (32-34) 07/24/19 Unknown RDW 13.5 % (13.2-15.2) 07/24/19 Unknown Plt Count 350 K/mm3 (140-440) 07/24/19 Unknown Lymph % (Auto) 16.0 % (13.4-35.0) 07/24/19 Unknown [place] % (Auto) 9.3 % (0.0-7.3) H 07/24/19 Unknown Eos % (Auto) 0.2 % (0.0-4.3) 07/24/19 Unknown Baso % (Auto) 0.2 % (0.0-1.8) 07/24/19 Unknown Lymph # 1.8 K/mm3 (1.2-5.4) 07/24/19 Unknown [place] # 1.1 K/mm3 (0.0-0.8) H 07/24/19 Unknown Eos # 0.0 K/mm3 (0.0-0.4) 07/24/19 Unknown Baso # 0.0 K/mm3 (0.0-0.1) 07/24/19 Unknown Seg Neutrophils % 74.3 % (40.0-70.0) H 07/24/19 Unknown Seg Neutrophils # 8.5 K/mm3 (1.8-7.7) H 07/24/19 Unknown Sodium 137 mmol/L (137-145) 07/24/19 04:00 Potassium 4.1 mmol/L (3.6-5.0) 07/24/19 04:00 Chloride 98.2 mmol/L (98-107) 07/24/19 04:00 Carbon Dioxide 24 mmol/L (22-30) 07/24/19 04:00 Anion Gap 19 mmol/L 07/24/19 04:00 BUN 7 mg/dL (9-20) L 07/24/19 04:00 Creatinine 0.6 mg/dL (0.8-1.5) L 07/24/19 04:00 Estimated GFR > 60 ml/min 07/24/19 04:00 BUN/Creatinine Ratio 12 % 07/24/19 04:00 Glucose 125 mg/dL (75-100) H 07/24/19 04:00 Lactic Acid 0.80 mmol/L (0.7-2.0) 07/22/19 22:26 Calcium 8.8 mg/dL (8.4-10.2) 07/24/19 04:00 Total Bilirubin 0.30 mg/dL (0.1-1.2) 07/22/19 22:26 AST 21 units/L (5-40) 07/22/19 22:26 ALT 26 units/L (7-56) 07/22/19 22:26 Alkaline Phosphatase 87 units/L (35-129) 07/22/19 22:26 Total Creatine Kinase 180 units/L (55-170) H 07/22/19 22:26 Total Protein 7.3 g/dL (6.3-8.2) 07/22/19 22:26 Albumin 3.9 g/dL (3.9-5) 07/22/19 22:26 Albumin/Globulin Ratio 1.1 % 07/22/19 22:26 Active Medications - Current Medications Current Medications: Generic Name Dose Route Start Last Admin Trade Name Freq PRN Reason Stop Dose Admin Acetaminophen 650 mg 07/23/19 02:38 Tylenol PO Q4H PRN Pain MILD(1-3)/Fever >100.5/SPENCER Folic Acid 1 mg 07/25/19 10:00 Folvite PO DAILY GIRISH Hydromorphone HCl 0.5 mg 07/23/19 02:38 07/24/19 08:06 Dilaudid IV 0.5 mg Q3H PRN Administration Pain , Severe (7-10) Metronidazole 500 mg in 100 mls @ 100 mls/hr 07/23/19 06:00 07/24/19 06:58 Flagyl 500 Mg/100 Ml IV 100 mls/hr Q8HR GIRISH Administration Protocol Folic Acid 1 mg/ Sodium 50.2 mls @ 200.8 mls/hr 07/23/19 10:00 07/23/19 14:59 Chloride IV 07/24/19 14:00 200.8 mls/hr QDAY GIRISH Administration Thiamine HCl 100 mg/ Sodium 51 mls @ 100 mls/hr 07/23/19 10:00 07/23/19 12:32 Chloride IV 07/24/19 14:00 100 mls/hr QDAY GIRISH Administration Dextrose/Sodium Chloride 1,000 mls @ 75 mls/hr 07/23/19 04:00 07/23/19 12:25 D5ns IV 75 mls/hr DIRECT GIRISH Administration Levofloxacin/Dextrose 500 mg in 100 mls @ 100 mls/hr 07/23/19 05:00 07/24/19 05:10 Levaquin 500mg/100ml IV 100 mls/hr Q24H GIRISH Administration Protocol Lorazepam 2 mg 07/23/19 02:50 07/24/19 06:40 Ativan IV 2 mg Q1H PRN Administration CIWA-Ar 8-15 Lorazepam 4 mg 07/23/19 02:50 Ativan IV Q1H PRN CIWA-Ar 16-25 Morphine Sulfate 2 mg 07/23/19 02:38 07/24/19 06:00 Morphine IV 2 mg Q4H PRN Administration Pain, Moderate (4-6) Nicotine 14 mg 07/23/19 10:00 07/23/19 12:37 Habitrol TD Not Given QDAY GIRISH Ondansetron HCl 4 mg 07/23/19 02:38 Zofran IV Q6H PRN Nausea And Vomiting Sodium Chloride 10 ml 07/23/19 10:00 07/23/19 22:04 Sodium Chloride Flush Syringe 10 Ml IV 10 ml BID GIRISH Administration Sodium Chloride 10 ml 07/23/19 02:38 Sodium Chloride Flush Syringe 10 Ml IV PRN PRN LINE FLUSH Thiamine HCl 100 mg 07/25/19 10:00 Vitamin B-1 PO QDAY GIRISH
[2019-07-24] MEDS: THIAMINE 100 MG in SODIUM CHLORIDE 0.9% 50 ML IV SCH (11:10)
[2019-07-24] MEDS: FOLIC ACID 1 MG in SODIUM CHLORIDE 0.9% 50 ML IV SCH (11:10)
--- NOTE | 2019-07-24 11:31 | Progress Note ---
Assessment and Plan POD#1 s/p incision and drainage of right gluteal karlos-anal abscess. progressing well. will follow path and tailor antibiotics for cultured bacteria. wound care team to change dressing per their treatment plan and prepare patient for out patient care. Subjective Date of service: 07/24/19 Patient Reports: Positive: no new complaints (sore, but pain is a bit less than prior to I&D) Objective Vital Signs - 12hr 07/24/19 05:47 Temperature 97.8 F Pulse Rate 85 Respiratory 20 Rate Blood Pressure 115/58 O2 Sat by Pulse 93 Oximetry - General physical appearance Narrative Exam: no distress. Bandage had slipped off. packing in place with sero-sanguinous drainage. - Labs 07/24/19 Unknown 07/24/19 04:00 Diabetes panel 07/24/19 Range/Units 04:00 Sodium 137 (137-145) mmol/L Potassium 4.1 (3.6-5.0) mmol/L Chloride 98.2 (98-107) mmol/L Carbon Dioxide 24 (22-30) mmol/L BUN 7 L (9-20) mg/dL Creatinine 0.6 L (0.8-1.5) mg/dL Glucose 125 H (75-100) mg/dL Calcium 8.8 (8.4-10.2) mg/dL Calcium panel 07/24/19 Range/Units 04:00 Calcium 8.8 (8.4-10.2) mg/dL Pituitary panel 07/24/19 Range/Units 04:00 Sodium 137 (137-145) mmol/L Potassium 4.1 (3.6-5.0) mmol/L Chloride 98.2 (98-107) mmol/L Carbon Dioxide 24 (22-30) mmol/L BUN 7 L (9-20) mg/dL Creatinine 0.6 L (0.8-1.5) mg/dL Glucose 125 H (75-100) mg/dL Calcium 8.8 (8.4-10.2) mg/dL Adrenal panel 07/24/19 Range/Units 04:00 Sodium 137 (137-145) mmol/L Potassium 4.1 (3.6-5.0) mmol/L Chloride 98.2 (98-107) mmol/L Carbon Dioxide 24 (22-30) mmol/L BUN 7 L (9-20) mg/dL Creatinine 0.6 L (0.8-1.5) mg/dL Glucose 125 H (75-100) mg/dL Calcium 8.8 (8.4-10.2) mg/dL
[2019-07-24] MEDS: oxyCODONE /ACETAMINOPHEN 5-325MG TAB PO PRN ×2 (14:12→22:31)
[2019-07-24] MEDS: D5W/0.9% NACL 1,000 ML IV SCH (14:16)
[2019-07-24 23:26] VITALS: BP 127/73
[2019-07-25] MEDS: HYDROmorphone 1 MG/1 ML INJ IV PRN ×2 (01:40→07:31)
[2019-07-25] MEDS: LORazepam 2 MG/ML VIAL IV PRN ×3 (01:42→09:04)
[2019-07-25] MEDS: D5W/0.9% NACL 1,000 ML IV SCH (04:50)
[2019-07-25] MEDS: oxyCODONE /ACETAMINOPHEN 5-325MG TAB PO PRN ×3 (04:51→17:15)
[2019-07-25] MEDS: metroNIDAZOLE/NS 500 MG/100 ML 500 MG/100 ML BAG IV SCH (06:17)
[2019-07-25] MEDS: NICOTINE 14 MG/24 HR PATCH TD SCH (09:51)
[2019-07-25] MEDS ORDERED: FOLIC ACID 1 MG TAB PO SCH (10:00)
[2019-07-25] MEDS ORDERED: THIAMINE 100 MG TAB PO SCH (10:00)
--- NOTE | 2019-07-25 10:57 | Progress Note ---
Hospitalist Physical - Constitutional Vitals: Temp Pulse Resp BP Pulse Ox 97.9 F 81 20 127/73 98 07/24/19 22:50 07/24/19 22:50 07/24/19 22:50 07/24/19 22:50 07/24/19 22:50 Results - Labs CBC & Chem 7: 07/24/19 Unknown 07/24/19 04:00 Labs: Laboratory Last Values WBC 11.4 K/mm3 (4.5-11.0) H 07/24/19 Unknown RBC 4.79 M/mm3 (3.65-5.03) 07/24/19 Unknown Hgb 14.6 gm/dl (11.8-15.2) 07/24/19 Unknown Hct 42.6 % (35.5-45.6) 07/24/19 Unknown MCV 89 fl (84-94) 07/24/19 Unknown MCH 31 pg (28-32) 07/24/19 Unknown MCHC 34 % (32-34) 07/24/19 Unknown RDW 13.5 % (13.2-15.2) 07/24/19 Unknown Plt Count 350 K/mm3 (140-440) 07/24/19 Unknown Lymph % (Auto) 16.0 % (13.4-35.0) 07/24/19 Unknown [place] % (Auto) 9.3 % (0.0-7.3) H 07/24/19 Unknown Eos % (Auto) 0.2 % (0.0-4.3) 07/24/19 Unknown Baso % (Auto) 0.2 % (0.0-1.8) 07/24/19 Unknown Lymph # 1.8 K/mm3 (1.2-5.4) 07/24/19 Unknown [place] # 1.1 K/mm3 (0.0-0.8) H 07/24/19 Unknown Eos # 0.0 K/mm3 (0.0-0.4) 07/24/19 Unknown Baso # 0.0 K/mm3 (0.0-0.1) 07/24/19 Unknown Seg Neutrophils % 74.3 % (40.0-70.0) H 07/24/19 Unknown Seg Neutrophils # 8.5 K/mm3 (1.8-7.7) H 07/24/19 Unknown Sodium 137 mmol/L (137-145) 07/24/19 04:00 Potassium 4.1 mmol/L (3.6-5.0) 07/24/19 04:00 Chloride 98.2 mmol/L (98-107) 07/24/19 04:00 Carbon Dioxide 24 mmol/L (22-30) 07/24/19 04:00 Anion Gap 19 mmol/L 07/24/19 04:00 BUN 7 mg/dL (9-20) L 07/24/19 04:00 Creatinine 0.6 mg/dL (0.8-1.5) L 07/24/19 04:00 Estimated GFR > 60 ml/min 07/24/19 04:00 BUN/Creatinine Ratio 12 % 07/24/19 04:00 Glucose 125 mg/dL (75-100) H 07/24/19 04:00 Lactic Acid 0.80 mmol/L (0.7-2.0) 07/22/19 22:26 Calcium 8.8 mg/dL (8.4-10.2) 07/24/19 04:00 Total Bilirubin 0.30 mg/dL (0.1-1.2) 07/22/19 22:26 AST 21 units/L (5-40) 07/22/19 22:26 ALT 26 units/L (7-56) 07/22/19 22:26 Alkaline Phosphatase 87 units/L (35-129) 07/22/19 22:26 Total Creatine Kinase 180 units/L (55-170) H 07/22/19 22:26 Total Protein 7.3 g/dL (6.3-8.2) 07/22/19 22:26 Albumin 3.9 g/dL (3.9-5) 07/22/19 22:26 Albumin/Globulin Ratio 1.1 % 07/22/19 22:26 Active Medications - Current Medications Current Medications: Generic Name Dose Route Start Last Admin Trade Name Freq PRN Reason Stop Dose Admin Acetaminophen 650 mg 07/23/19 02:38 Tylenol PO Q4H PRN Pain MILD(1-3)/Fever >100.5/SPENCER Folic Acid 1 mg 07/25/19 10:00 07/25/19 09:51 Folvite PO 1 mg DAILY GIRISH Administration Hydromorphone HCl 0.5 mg 07/23/19 02:38 07/25/19 07:31 Dilaudid IV 0.5 mg Q3H PRN Administration Pain , Severe (7-10) Metronidazole 500 mg in 100 mls @ 100 mls/hr 07/23/19 06:00 07/25/19 06:17 Flagyl 500 Mg/100 Ml IV 100 mls/hr Q8HR GIRISH Administration Protocol Dextrose/Sodium Chloride 1,000 mls @ 75 mls/hr 07/23/19 04:00 07/25/19 04:50 D5ns IV 75 mls/hr DIRECT GIRISH Administration Levofloxacin/Dextrose 500 mg in 100 mls @ 100 mls/hr 07/23/19 05:00 07/25/19 05:13 Levaquin 500mg/100ml IV 100 mls/hr Q24H GIRISH Administration Protocol Lorazepam 2 mg 07/23/19 02:50 07/25/19 09:04 Ativan IV 2 mg Q1H PRN Administration CIWA-Ar 8-15 Lorazepam 4 mg 07/23/19 02:50 Ativan IV Q1H PRN CIWA-Ar 16-25 Nicotine 14 mg 07/23/19 10:00 07/25/19 09:51 Habitrol TD 14 mg QDAY GIRISH Administration Ondansetron HCl 4 mg 07/23/19 02:38 Zofran IV Q6H PRN Nausea And Vomiting Oxycodone/Acetaminophen 2 tab 07/24/19 13:56 07/25/19 04:51 Percocet 5/325 PO 2 tab Q6H PRN Administration Pain, Moderate (4-6) Sodium Chloride 10 ml 07/23/19 10:00 07/25/19 09:51 Sodium Chloride Flush Syringe 10 Ml IV 10 ml BID GIRISH Administration Sodium Chloride 10 ml 07/23/19 02:38 Sodium Chloride Flush Syringe 10 Ml IV PRN PRN LINE FLUSH Thiamine HCl 100 mg 07/25/19 10:00 07/25/19 09:51 Vitamin B-1 PO 100 mg QDAY GIRISH Administration
--- NOTE | 2019-07-25 11:36 | Discharge Summary ---
Providers - Providers Date of Admission: 07/23/19 02:38 Attending physician: STEFFEN VENCES MD 07/23/19 10:25 Consult to Wound/ET Nurse [CONS] Routine Reason For Exam: wound eval 07/24/19 11:39 Consult to Mental Health [CONS] Routine Reason For Exam: suicidal ideation Place consult to:: Romelia Notified:: yes Primary care physician: POST OFFICE MANAGER Hospitalization Condition: Fair Hospital course: 33-year-old male who is on 1013 at [facility] with history of anxiety, depression, tobacco abuse, and EtOH abuse who presents to [facility] ED with complaints of abscess to the right buttock. Will admit to Med/Surg for further evaluation and treatment. Perianal abscess -I&D of abscess done at [facility] 4 days ago, sp I and D by Dr Kan on 07/23, surgical cx growing gram neg rods -Today's CT Abd/Pelvis revealed: perianal abscess measuring 3.2 x 2.0 x 6.0 cm extending to right medial buttock along the gluteal cleft with induration of the inferior right buttock extending into the posterior scrotum. This abscess contains a few bubbles of gas and a small calcification. -Start on IV Levaquin and Flagyl -Gen Surgery (Dr. Kan) consulted with plans to take pt to OR in am -NPO -on IVF -Continue supportive care Leukocytosis -WBC 12.7 -Afebrile -Likely secondary to perianal abscess -On IV abx -Continue to monitor CBC Tobacco abuse -Current every day smoker -Counseled for cessation -Nicotine patch when necessary EtOH Abuse -Last drink 4 days ago -Initiate CIWA protocol -Start Thiamine and Folic Acid -On D5 NS -Counseled for cessation abuse DVT PPX -on SCD's Disposition: DC-01 TO HOME OR SELFCARE Time spent for discharge: 33 mins Core Measure Documentation - Palliative Care Palliative Care/ Comfort Measures: Not Applicable - Core Measures Any of the following diagnoses?: none Exam - Constitutional Vitals: Temp Pulse Resp BP Pulse Ox 97.9 F 81 20 127/73 98 07/24/19 22:50 07/24/19 22:50 07/24/19 22:50 07/24/19 22:50 07/24/19 22:50 General appearance: Present: no acute distress, well-nourished - EENT Eyes: Present: PERRL ENT: hearing intact, clear oral mucosa - Neck Neck: Present: supple, normal ROM - Respiratory Respiratory effort: normal Respiratory: bilateral: CTA - Cardiovascular Heart Sounds: Present: S1 & S2. Absent: rub, click - Extremities Extremities: pulses symmetrical, No edema Peripheral Pulses: within normal limits - Abdominal General gastrointestinal: Present: soft, non-tender, non-distended, normal bowel sounds Male genitourinary: Present: normal - Integumentary Integumentary: Present: clear, warm, dry (perirectal wound) - Musculoskeletal Musculoskeletal: gait normal, strength equal bilaterally - Psychiatric Psychiatric: appropriate mood/affect, intact judgment & insight - Neurologic Neurologic: CNII-XII intact, moves all extremities Plan Follow up with: PRIMARY CARE,MD [Primary Care Provider] - 3-5 Days Prescriptions: cefUROXime [Ceftin] 500 mg PO Q12HR #14 tablet Folic Acid [Folvite] 1 mg PO DAILY #30 tablet Nicotine [Habitrol] 14 mg TD QDAY #30 patch oxyCODONE /ACETAMINOPHEN [Percocet 5/325 mg] 2 tab PO Q6H PRN #20 tablet PRN Reason: Pain, Moderate (4-6) Thiamine [Vitamin B-1] 100 mg PO QDAY #30 tablet
--- NOTE | 2019-07-25 11:39 | Progress Note ---
Assessment and Plan clinical improvement after incision and drainage of gluteal/perianal abscess. saw dressing change from wound care. he is being taught how to do sitz baths. Since the wound is open and all abscess cavities accessed and evacuated, do not need to continue packing wound as part of dressing after discharge. Subjective Date of service: 07/25/19 Patient Reports: Positive: feels better, pain is less (no acute events over night) Objective - General physical appearance well developed, well nourished (gluteal dressing c/d/i. less tender to palpation), no distress - Labs 07/24/19 Unknown 07/24/19 04:00
--- NOTE | 2019-07-25 13:13 | Consultation ---
History of Present Illness - Reason for Consult Consult date: 07/25/19 Reason for consult: Mental Health Evaluation Requesting physician: STEFFEN VENCES - Chief Complaint Chief complaint: "I was never suicidal" - History of Present Psychiatric Illness 33 y.o. white male who presented to the hospital from [facility] for a perianal abscess. Psychiatry was consulted to see the patient for SI's. Today the patient was calm and cooperative during the assessment. He stated that he is having family issues with his father. He stated that he relapsed on alcohol because of the stress. He stated that he was suicidal with a plan to shot himself in the face when he was at [facility] prior to being transferred to [facility]. He acknowledged that he gestured SI to get help for his alcoholism. He stated, "I was never suicidal." He stated that he do not want to start drinking (etoh) again. He stated that he plan to stay away from his father once he return home. He denies any previous suicide attempts when asked. He stated that he is seen by his PCP in his local area for depression and take Celexa. He stated that he has a prescription at home (Celexa). He stated that he would like a referral to see a psychiatrist in local area. He denies SI/HI's and AVH's. He denies a poor appetite and a erratic sleep. He denies recreational drug use. Medications and Allergies Allergies Allergy/AdvReac Type Severity Reaction Status Date / Time No Known Allergies Allergy Verified 07/23/19 04:29 Home Medications Medication Instructions Recorded Confirmed Last Taken Type Citalopram Hydrobromide [Celexa] 40 mg PO DAILY #30 tablet 07/25/19 Unknown Rx Folic Acid [Folvite] 1 mg PO DAILY #30 tablet 07/25/19 Unknown Rx Nicotine [Habitrol] 14 mg TD QDAY #30 patch 07/25/19 Unknown Rx Thiamine [Vitamin B-1] 100 mg PO QDAY #30 tablet 07/25/19 Unknown Rx cefUROXime [Ceftin] 500 mg PO Q12HR #14 tablet 07/25/19 Unknown Rx oxyCODONE /ACETAMINOPHEN [Percocet 2 tab PO Q6H PRN #20 tablet 07/25/19 Unknown Rx 5/325 mg] Active Meds: Active Medications Acetaminophen (Tylenol) 650 mg PO Q4H PRN PRN Reason: Pain MILD(1-3)/Fever >100.5/SPENCER Cefuroxime Axetil (Ceftin) 500 mg PO Q12HR [facility] Folic Acid (Folvite) 1 mg PO DAILY [facility] Last Admin: 07/25/19 09:51 Dose: 1 mg Documented by: Nicotine (Habitrol) 14 mg TD QDAY [facility] Last Admin: 07/25/19 09:51 Dose: 14 mg Documented by: Ondansetron HCl (Zofran) 4 mg IV Q6H PRN PRN Reason: Nausea And Vomiting Oxycodone/Acetaminophen (Percocet 5/325) 2 tab PO Q6H PRN PRN Reason: Pain, Moderate (4-6) Last Admin: 07/25/19 11:20 Dose: 2 tab Documented by: Sodium Chloride (Sodium Chloride Flush Syringe 10 Ml) 10 ml IV BID [facility] Last Admin: 07/25/19 09:51 Dose: 10 ml Documented by: Sodium Chloride (Sodium Chloride Flush Syringe 10 Ml) 10 ml IV PRN PRN PRN Reason: LINE FLUSH Thiamine HCl (Vitamin B-1) 100 mg PO QDAY [facility] Last Admin: 07/25/19 09:51 Dose: 100 mg Documented by: Past psychiatric history - Past Medical History Past Medical History: No medical history Past Surgical History: No surgical history - past Psychiatric treatment and history psychiatric treatment history: Hx of depression and alcohol abuse. Denies a fam psy hx. - Social History Social history: lives with family Mental Status Exam - Vital signs Last Vital Signs Temp 97.9 F 07/24/19 22:50 Pulse 81 07/24/19 22:50 Resp 20 07/24/19 22:50 BP 127/73 07/24/19 22:50 Pulse Ox 98 07/24/19 22:50 - Exam Narrative exam: MSE: Appearance: calm, cooperative Behavior: regular eye contact Speech: regular rate and tone Mood: "okay" Affect: congruent to mood Thought Process: linear Thought Content: denies SI/HI's and AVH's Motor Activity: sitting up in bed Cognition: A/O x3 Insight: appropriate Judgment: appropriate Results Result Diagrams: 07/24/19 Unknown 07/24/19 04:00 All other labs normal. Assessment and Plan Assessment and plan: Impression: Hx of Depression/Alcohol Abuse. Family Dynamic issues. Today the patient was calm and cooperative during the assessment. The patient is no threat to self. Recommendation/Plan: Rescind 1013. The patient do not need any prescriptions. Discussed generalized coping skills with the patient, he verbalized understanding. Dispo: The patient can follow up with [place] or [facility] for outpatient psy services. Staffed with Dr Vinh Toth.
--- NOTE | 2019-08-10 15:40 | Discharge Summary ---
Providers - Providers Date of Admission: 07/23/19 02:38 Attending physician: STEFFEN VENCES MD 07/23/19 10:25 Consult to Wound/ET Nurse [CONS] Routine Reason For Exam: wound eval 07/24/19 11:39 Consult to Mental Health [CONS] Routine Reason For Exam: suicidal ideation Place consult to:: Romelia Notified:: yes Primary care physician: [employer] REPRESENTATIVE Hospitalization Condition: Fair Hospital course: 33-year-old male who is on 1013 at [facility] with history of anxiety, depression, tobacco abuse, and EtOH abuse who [facility] with complaints of abscess to the right buttock. Perianal abscess -I&D of abscess done at [facility] 4 days ago, sp another I and D by Dr aKn on 07/23, surgical cx growing gram neg rods Treated with antibiotics, will complete antibiotics orally as outpatient Leukocytosis Trending down Tobacco abuse/dependence Smoking cessation counseling performed for 10 minutes, nicotine patches when necessary Etoh dependence and withdrawal - ciwa protocol, thiamine and folate -preventative health counseling performed for 17 minutes Had not had a drink for close to a week Depression, history of SI Patient was seen by psychiatry, his psych meds were optimized DVT PPX -on SCD's Disposition: DC-01 TO HOME OR SELFCARE Time spent for discharge: 35 minutes Core Measure Documentation - Palliative Care Palliative Care/ Comfort Measures: Not Applicable - Core Measures Any of the following diagnoses?: none Exam - Physical Exam Narrative exam: General.: Appears well, no distress, nontoxic HEENT: Moist mucous membranes, extraocular muscles intact, no lymphadenopathy Neck: supple Cardiac: S1-S2 heard Lungs: clear to auscultation bilaterally Abdomen: soft , nontender, nondistended, bowel sounds positive Extremities: no edema clubbing or cyanosis Skin: no rash or lesions Perianal dressing was not removed Neurologic: no gross focal deficits Psych: calm, and cooperative - Constitutional Vitals: Temp Pulse Resp BP Pulse Ox 97.9 F 81 20 127/73 98 07/24/19 22:50 07/24/19 22:50 07/24/19 22:50 07/24/19 22:50 07/24/19 22:50 Plan Follow up with: PRIMARY MD JENN [Primary Care Provider] - 3-5 Days Prescriptions: cefUROXime [Ceftin] 500 mg PO Q12HR #14 tablet Citalopram Hydrobromide [Celexa] 40 mg PO DAILY #30 tablet Folic Acid [Folvite] 1 mg PO DAILY #30 tablet Nicotine [Habitrol] 14 mg TD QDAY #30 patch oxyCODONE /ACETAMINOPHEN [Percocet 5/325 mg] 2 tab PO Q6H PRN #20 tablet PRN Reason: Pain, Moderate (4-6) Thiamine [Vitamin B-1] 100 mg PO QDAY #30 tablet
== END 2019-07-25 17:30 | disposition home or self-care (01) | DRG 394 ==
LOC: ED 20:33 → 3A 07-23 02:38
PROVIDERS: ADMIT Internal Medicine; ATTEND Internal Medicine
PROC: 0HB8XZZ Excision of Buttock Skin, External Approach (ICD-10-PCS; principal; 2019-07-23)
DX: K61.0 Anal abscess (principal); L02.31 Cutaneous abscess of buttock; Z68.41 Body mass index [BMI] 40.0-44.9, adult; F17.200 Nicotine dependence, unspecified, uncomplicated; F41.9 Anxiety disorder, unspecified; F32.9 Major depressive disorder, single episode, unspecified; E66.9 Obesity, unspecified; D72.829 Elevated white blood cell count, unspecified; F10.10 Alcohol abuse, uncomplicated; Z79.899 Other long term (current) drug therapy; Z71.6 Tobacco abuse counseling
CPT/HCPCS: 36415; 74177; 80048; 80053; 82140; 82550; 85025; 87040; 87075; 87076; 87116; 87186; 93005; 93010; 96365; 96375; 99406; G0378; J0330; J1100; J1170; J1956; J2060; J2270; J2370; J2405; J2704; J2710; J3010; J3411; J7030; J7042; Q9967